=== PATIENT | male | born 1970 | race Caucasian/White ===

== ENCOUNTER → 2018-01-29 | Outpatient (CLI) | payer OTHER ==
[~2018-01-29] MED LIST: ALLEGRA30 MG PO; BUPROPION HCL75 MG PO; GLUCOPHAGE500 MG PO; LISINOPRIL5 MG PO; VENTOLIN HFA18 GM IH
== END | disposition home or self-care (01) ==
LOC: CDC 11:39
DX: Z01.810 Encounter for preprocedural cardiovascular examination (principal)
CPT/HCPCS: 93000

== ENCOUNTER 2018-04-30 12:42 | Emergency (ER) | payer OTHER ==
[~2018-04-30] VITALS: Ht 177.8 cm; Wt 126.9 kg
[2018-04-30 16:36] LABS: HEMATOCRIT 43.1 % (38.0-50.0); HEMOGLOBIN 15.4 G/DL (12.5-16.6); MCH 30.7 PG (29.0-34.0); MCHC 35.7 G/DL (30.0-36.0); MCV 85.9 FL (86-99); PLATELET COUNT 222 K/uL (156-360); RBC DIS.WIDTH-CV 12.8 % (11.8-14.6); RBC DIS.WIDTH-SD 39.8 % (39-53); RED BLOOD COUNT 5.02 M/uL (4.00-5.50); WHITE BLOOD COUNT 12.5 K/uL (4.1-10.2)
[2018-04-30 16:45] LABS: CHLORIDE 104 mEq/L (99-109); POTASSIUM 4.1 mEq/L (3.7-5.4); SODIUM 140 mEq/L (136-147)
[2018-04-30 16:47] LABS: GLUCOSE 126 mg/dL (70-99)
[2018-04-30 16:51] LABS: CREATININE 0.9 mg/dL (0.6-1.3); GFR ESTIMATE (CALCULATED) > 59 mL/min/ (58.99-99999)
[2018-04-30 16:52] LABS: UREA NITROGEN (BUN) 13 mg/dL (9-23)
[2018-04-30] MEDS ORDERED: ZOFRAN ODT8 MG PO (18:40)
[2018-04-30] MEDS ORDERED: MECLIZINE HCL25 MG PO (18:40)
[2018-04-30 19:00] VITALS: BP 145/90
== END 2018-04-30 19:00 | disposition home or self-care (01) ==
LOC: EME 12:42
PROVIDERS: Hospitalist; Physician Assistant
DX: R42 Dizziness and giddiness (principal); Z98.890 Other specified postprocedural states; I10 Essential (primary) hypertension; E11.9 Type 2 diabetes mellitus without complications; Z79.84 Long term (current) use of oral hypoglycemic drugs; F32.9 Major depressive disorder, single episode, unspecified
CPT/HCPCS: 80048; 82948; 85027; 99281; 99284; Q0169